=== PATIENT | female | born 1940 | race Two or more races ===

== ENCOUNTER 2023-12-15 09:59 | Emergency (ER) | payer OTHER ==
[~2023-12-15] VITALS: Ht 152.4 cm; Wt 72.6 kg
[2023-12-15] MEDS ORDERED: GRALISE600 MG PO (10:11)
[2023-12-15] MEDS ORDERED: ZOLOFT100 MG PO (10:12)
[2023-12-15] MEDS ORDERED: JANUMET 50-1,01 EACH PO (10:12)
[2023-12-15] MEDS ORDERED: COZAAR25 MG PO (10:13)
[2023-12-15] MEDS ORDERED: TIROSINT75 MCG PO (10:13)
[2023-12-15] MEDS ORDERED: MIRTAZAPINE30 MG PO (10:13)
[2023-12-15] MEDS ORDERED: GLIMEPIRIDE1 M1 PO (10:15)
[2023-12-15] MEDS ORDERED: TOPROL XL200 MG PO (10:15)
[2023-12-15] MEDS ORDERED: AMLODIPINE-OLM1 EAC3 PO (10:16)
[2023-12-15] MEDS ORDERED: LIPITOR20 MG PO (10:16)
[2023-12-15] MEDS ORDERED: KETOROLAC TROMETHAMINE 30 MG VIAL IM ONE (11:15)
== END 2023-12-15 12:20 ==
LOC: ER 10:00
DX: M54.40 Lumbago with sciatica, unspecified side (principal); I10 Essential (primary) hypertension; E03.8 Other specified hypothyroidism; E11.9 Type 2 diabetes mellitus without complications; Z91.013 Allergy to seafood
CPT/HCPCS: 96372; 99282; J1885